=== PATIENT | male | born 1995 | race Caucasian/White ===

== ENCOUNTER 2017-01-18 14:13 | Emergency (ER) | payer OTHER ==
[~2017-01-18] VITALS: Ht 175.3 cm; Wt 110.0 kg
[~2017-01-18 14:13] MED LIST: ADVAIR 250/501 DISK IH; ADVAIR HFA120 INHALA IH; AURALGAN14.8 ML RIGHT EAR; CETIRIZINE HCL10 M2 PO; CIPRO HC OTIC S10 ML RIGHT EAR; FLONASE16 G1 BOTH NARES; PREDNISONE20 MG PO; PREDNISONE50 MG PO; TYLENOL EXTRA500 MG PO; VENTOLIN HFA18 GM IH
[2017-01-18 16:13] LABS: HEMATOCRIT 50.4 % (38.0-50.0); MCH 28.9 PG (29.0-34.0); MCHC 34.9 G/DL (30.0-36.0); MCV 82.6 FL (86-99); PLATELET COUNT 187 K/uL (156-360); RBC DIS.WIDTH-CV 13.3 % (11.8-14.6); RBC DIS.WIDTH-SD 39.9 % (39-53); WHITE BLOOD COUNT 11.3 K/uL (4.1-10.2)
[2017-01-18 16:23] LABS: CHLORIDE 107 mEq/L (99-109); POTASSIUM 4.4 mEq/L (3.7-5.4); SODIUM 139 mEq/L (136-147)
[2017-01-18 16:25] LABS: GLUCOSE 88 mg/dL (70-99)
[2017-01-18 16:26] LABS: ANION GAP 6 MEQ/L (2-14)
[2017-01-18 16:29] LABS: GFR ESTIMATE (CALCULATED) > 59 mL/min/; UREA NITROGEN (BUN) 12 mg/dL (9-23)
[2017-01-18] MEDS ORDERED: PROVENTIL,2.5 MG/3 M IH (18:13)
[2017-01-18] MEDS ORDERED: PREDNISONE10 M1 PO (19:15)
[2017-01-18 19:30] VITALS: BP 136/94
== END 2017-01-18 19:33 | disposition home or self-care (01) ==
LOC: EME 14:13
DX: J45.901 Unspecified asthma with (acute) exacerbation (principal); E83.52 Hypercalcemia
CPT/HCPCS: 71020; 80048; 85027; 94640; 99281; 99284; J7512

== ENCOUNTER 2018-06-27 02:51 | Emergency (ER) | payer OTHER ==
[~2018-06-27] VITALS: Ht 172.7 cm; Wt 111.7 kg
[~2018-06-27 02:51] MED LIST changes: +PREDNISONE10 M1 PO; +PROVENTIL,2.5 MG/3 M IH
[2018-06-27] MEDS ORDERED: PROAIR RESPICL90 MCG IH (04:16)
[2018-06-27 04:56] VITALS: BP 112/66
== END 2018-06-27 04:59 | disposition home or self-care (01) ==
LOC: EME → EDBD 02:51 → EME 04:59
DX: J45.901 Unspecified asthma with (acute) exacerbation (principal); I49.3 Ventricular premature depolarization; R94.31 Abnormal electrocardiogram [ECG] [EKG]; K21.9 Gastro-esophageal reflux disease without esophagitis; Z87.09 Personal history of other diseases of the respiratory system; Z92.89 Personal history of other medical treatment
CPT/HCPCS: 93005; 94640; 99281; 99284